=== PATIENT | female | born 1980 | race Caucasian/White ===

== ENCOUNTER 2018-12-15 17:26 | Emergency (ER) | payer MEDICAID ==
[~2018-12-15] VITALS: Wt 79.3 kg
[2018-12-15 17:29] VITALS: BP 142/94; PULSE 70; RESP 20
== END 2018-12-15 19:24 | disposition home or self-care (01) ==
LOC: E/R 17:26
DX: N93.9 Abnormal uterine and vaginal bleeding, unspecified (principal); R10.2 Pelvic and perineal pain
CPT/HCPCS: 76830; 76856; 80053; 81001; 84703; 85025; Z7502